=== PATIENT | female | born 1990 | race African-American/Black ===

== ENCOUNTER 2024-09-23 09:23 | Outpatient (CLI) | payer BC ==
[~2024-09-23 09:23] MED LIST: Iopamidol 370 76% 100 ML VIAL ONE
== END 2024-09-23 09:24 | disposition home or self-care (01) ==
LOC: BICCT 09:23
PROVIDERS: ATTEND Student in an Organized Health Care Education/Training Program
DX: E16.1 Other hypoglycemia (principal)
CPT/HCPCS: 36415; 74178; 82565